=== PATIENT | female | born 1980 ===

== ENCOUNTER 2017-12-30 00:59 | Emergency (ER) | payer OTHER, MEDICAID ==
[2017-12-30] MEDS ORDERED: TORADOL IM ONE (05:56)
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
[2017-12-30] MEDS ORDERED: FLEXERIL PO ONE (07:38)
[2017-12-30] MEDS ORDERED: NORCO 5/325 PO ONE (07:38)
[2017-12-30 08:13] VITALS: BP 119/83
== END 2017-12-30 08:15 | disposition home or self-care (01) ==
LOC: ED 00:59
DX: S39.012A Strain of muscle, fascia and tendon of lower back, initial encounter (principal); S16.1XXA Strain of muscle, fascia and tendon at neck level, initial encounter; M50.30 Other cervical disc degeneration, unspecified cervical region; M79.1 Myalgia; I10 Essential (primary) hypertension; F17.200 Nicotine dependence, unspecified, uncomplicated; F12.10 Cannabis abuse, uncomplicated; V89.2XXA Person injured in unspecified motor-vehicle accident, traffic, initial encounter; Y93.89 Activity, other specified; Y92.89 Other specified places as the place of occurrence of the external cause; Y99.8 Other external cause status
CPT/HCPCS: 72040; 99283